=== PATIENT | female | born 2000 | race Caucasian/White ===

== ENCOUNTER 2023-11-09 09:35 | Observation (INO) ==
--- NOTE | 2023-11-09 09:55 | Emergency Department Note ---
Impression & Plan Infectious mononucleosis with hepatitis, Intractable nausea and vomiting, Transaminitis, Dehydration ED Provider Note NAME: FARZAD DURÁN AGE: 23 SEX: F ARRIVES VIA: Ambulance INFORMANT: Patient ED PROVIDER(S): Gerard Leyva MD CHIEF COMPLAINT: Fever, cough congestion, nausea, vomiting, diarrhea. 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 The patient reports that she developed symptoms this past Friday and was seen at [facility] and diagnosed with influenza. She reports that she also had enlarged lymph nodes on her neck and it was suspected that she may also have mono at the time. She reports she did not get tested for mono but instructed to return if symptoms or not improving. She denies any chest pain or shortness of breath. On evaluation the patient is in no acute distress, afebrile with heart rate in the 100s and vital signs otherwise stable. She appears clinically dry. She has boggy nasal turbinates. She has scant injection of posterior pharynx without edema, exudates, tongue elevation or trismus. She does have mildly reactive posterior and submandibular lymphadenopathy. There is no pain with tracheal ambulation. Neck is supple full range of motion. Lungs with scant intermittent wheeze and otherwise are clear. She has generalized abdominal discomfort without discrete tenderness. EKG without overt acute ischemia. Chest x-ray with small right suprahilar density which may be artifactual from pulmonary vessels though pneumonia could appear similar and so repeat x-ray and follow-up is recommended. WBC 13.5K, nonspecific without neutrophilia. Atypical lymphocytes are present. H/H within normal limits. Platelets slightly low at 125K and consistent with viral illness. Potassium 3.3 with repletion initiated. BUN/creatinine 22, consistent the patient clean dry appearance. LFTs are elevated with total bilirubin 2.5, direct bili 1.5, AST and ALT 235 and 257, respectively and alk phos 322. Monoscreen was positive and so transaminitis likely related to this. High-sensitivity troponin 4.8, within normal limits. Lipase is not elevated. Procalcitonin is not elevated. hCG negative. CT abdomen pelvis performed to exclude intra-abdominal process contributing to LFTs and this was negative for acute abnormalities. 1.4 cm left paraovarian cyst is seen unlikely to be clinically significant. Mild splenomegaly consistent with patient's mononucleosis. Question of a 4 mm groundglass nodule is suggestive of inflammatory or infectious change. UA with WBCs and 2+ bacteria albeit with epithelial cells present. Urine drug screen did result positive for THC. On evaluation the patient felt marginally improved following treatment with IVF hydration famotidine, Zofran, Toradol, guaifenesin and nasal saline and albuterol MDI. Patient still reported significant nausea and was only minimally able to sip on water but nearly provoking recurrence of emesis. Given persistent of her symptoms with intractable nausea and vomiting in the setting of mononucleosis and influenza he does agree with plan for admission. I did review the patient's evaluation and plan with her mother as well over the phone at the patient's bedside. She also agreed with admission at this time. Of note, I did discuss the patient's acetaminophen use with the patient and her mother the phone and the mother was confident that she did not exceed more than 3000 mg in a single day. Case was d/[place] [facility] [place] who will evaluate the patient for admission. Further management per admitting team. Triage Nursing notes reviewed and agree them. Prior/external medical records reviewed Vital Signs: reviewed Differential diagnosis: Viral syndrome, otitis, pharyngitis, pneumonia, influenza, meningitis, urinary tract infection, sepsis, bacteremia, as well as other pathologies. ER treatment provided: See below. Diagnostics interpreted by me: ECG: Normal sinus rhythm with sinus arrhythmia, 89 bpm, no ectopy, nonspecific T wave abnormality, no overt ST elevation or depression, QTc 403, QRS 82. Cardiac Monitoring: An order for continuous cardiac monitoring was placed and demonstrated Normal sinus rhythm with sinus arrhythmia, 89 bpm, no ectopy. Laboratory studies: See below Imaging studies: See below Consultation(s): Case was d/[place]. [place] [facility] [place] who will evaluate the patient for admission. 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 The patient reports that she developed symptoms this past Friday and was seen at [facility] and diagnosed with influenza. She reports that she also had enlarged lymph nodes on her neck and it was suspected that she may also have mono at the time. She reports she did not get tested for mono but instructed to return if symptoms or not improving. She denies any chest pain or shortness of breath. ROS: See above HPI for pertinent positives & negatives. A total of 10 systems reviewed and were otherwise negative. VITALS:See Below PHYSICAL EXAMINATION: GENERAL: Awake, alert, ill-appearing, in no distress HENT: Normocephalic, atraumatic. Boggy nasal turbinates. Oropharynx with scant injection and dry mucous membranes and otherwise without edema, exudates, tongue elevation or trismus. EYES: Normal conjunctiva. Sclera non-icteric. NECK: Supple. No nuchal rigidity. FROM. No JVD. Reactive posterior cervical and submandibular lymphadenopathy. There is no pain with tracheal ablation. Neck is supple full range of motion. RESPIRATORY: Scant intermittent wheeze bilaterally and otherwise clear to auscultation. CARDIAC: Tachycardic rate, normal rhythm. Extremities warm and well perfused. Pulses equal. ABDOMEN: Soft, non-distended. Generalized abdominal discomfort without discrete tenderness to palpation. No rebound or guarding. No masses. RECTAL: Deferred. MUSCULOSKELETAL: Chest examination reveals no tenderness. The back is symmetrical on inspection without obvious abnormality. There is no CVA tenderness to palpation. No joint edema. LOWER EXTREMITIES: Calves are equal size bilaterally and non-tender. No edema. No discoloration. NEURO: Normal sensorium. No sensory or motor deficits noted. SKIN: No rash or jaundice noted. Gerard Leyva MD Past Med/Surg History Medical History Migraine Surgical History History of wisdom tooth extraction Social History Smoking Status: Never smoker Do You Dip or Chew Tobacco: No; Hx Alcohol Use: Yes Alcohol type: beer, wine and hard liquor Hx Substance Use: Yes Last Used Substance: Days (ago) Preferred Language: Israeli Communication Ability: Effective Case Planner Required: No Beliefs That Will Affect Care: None Current Living Situation: Other Other Information That Helps Us Care for You: No Feels Safe at Home: Yes Safety Concerns: Feels Safe At This Time Assistive Devices: Glasses Allergies Allergies Allergy/AdvReac Type Severity Reaction Status Date / Time Penicillins Allergy Rash Verified 11/09/23 12:00 Home Meds Home Medications Medication Instructions Recorded Confirmed No Known Home Medications 11/09/23 11/09/23 Results & Data (ED) Vital Signs Vital Signs - 24 hr 11/09/23 09:38 11/09/23 11:34 11/09/23 12:41 Temperature 37.1 C Temperature Source Oral Pulse Rate 104 H Pulse Rate [Right Finger] 114 H 93 H Pulse Rate from SpO2 Sensor Pulse Rhythm [Right Finger] Regular Regular Pulse Strength [Right Finger] Normal Normal Respiratory Rate 18 18 16 Respiratory Effort / Characteristics Non-Labored Non-Labored Non-Labored Respiratory Depth Normal Normal Normal Respiratory Pattern Regular Regular Regular Blood Pressure 140/88 Blood Pressure [Right Arm] 136/81 121/86 Blood Pressure Mean 105 Blood Pressure Mean [Right Arm] 99 97 Blood Pressure Position [Right Arm] Lying Sitting Pulse Oximetry 97 97 97 Oxygen Delivery Method Room Air Room Air Room Air Sepsis Recent Fever Within 48 Hours Yes Sepsis New/Unexplained Change in Mental Status No Sepsis Action Taken by Nursing No Action Required 11/09/23 13:04 11/09/23 13:30 11/09/23 13:30 Temperature Temperature Source Pulse Rate 102 H 92 H Pulse Rate [Right Finger] Pulse Rate from SpO2 Sensor 101 H 93 H Pulse Rhythm [Right Finger] Pulse Strength [Right Finger] Respiratory Rate 13 12 Respiratory Effort / Characteristics Respiratory Depth Respiratory Pattern Blood Pressure 130/79 Blood Pressure [Right Arm] Blood Pressure Mean 83 Blood Pressure Mean [Right Arm] Blood Pressure Position [Right Arm] Pulse Oximetry 96 97 Oxygen Delivery Method Sepsis Recent Fever Within 48 Hours Sepsis New/Unexplained Change in Mental Status Sepsis Action Taken by Nursing 11/09/23 13:40 11/09/23 14:08 11/09/23 14:08 Temperature Temperature Source Pulse Rate 104 H 91 H Pulse Rate [Right Finger] Pulse Rate from SpO2 Sensor 92 H Pulse Rhythm [Right Finger] Pulse Strength [Right Finger] Respiratory Rate 15 Respiratory Effort / Characteristics Respiratory Depth Respiratory Pattern Blood Pressure 130/79 Blood Pressure [Right Arm] Blood Pressure Mean 103 Blood Pressure Mean [Right Arm] Blood Pressure Position [Right Arm] Pulse Oximetry 96 Oxygen Delivery Method Sepsis Recent Fever Within 48 Hours Sepsis New/Unexplained Change in Mental Status Sepsis Action Taken by Nursing 11/09/23 14:30 11/09/23 14:30 11/09/23 15:00 Temperature Temperature Source Pulse Rate 88 Pulse Rate [Right Finger] Pulse Rate from SpO2 Sensor 87 Pulse Rhythm [Right Finger] Pulse Strength [Right Finger] Respiratory Rate 20 Respiratory Effort / Characteristics Respiratory Depth Respiratory Pattern Blood Pressure 123/66 102/69 Blood Pressure [Right Arm] Blood Pressure Mean 90 80 Blood Pressure Mean [Right Arm] Blood Pressure Position [Right Arm] Pulse Oximetry 97 Oxygen Delivery Method Sepsis Recent Fever Within 48 Hours Sepsis New/Unexplained Change in Mental Status Sepsis Action Taken by Nursing 11/09/23 15:00 Temperature Temperature Source Pulse Rate 90 Pulse Rate [Right Finger] Pulse Rate from SpO2 Sensor 184 H Pulse Rhythm [Right Finger] Pulse Strength [Right Finger] Respiratory Rate 13 Respiratory Effort / Characteristics Respiratory Depth Respiratory Pattern Blood Pressure Blood Pressure [Right Arm] Blood Pressure Mean Blood Pressure Mean [Right Arm] Blood Pressure Position [Right Arm] Pulse Oximetry 96 Oxygen Delivery Method Sepsis Recent Fever Within 48 Hours Sepsis New/Unexplained Change in Mental Status Sepsis Action Taken by Nursing Laboratory Data 11/09/23 09:45 11/09/23 09:45 Lab Results 11/09/23 Range/Units 09:45 WBC 13.50 H (4.8-10.8) K/ul RBC 5.55 H (4.20-5.40) M/uL Hgb 15.2 (12.0-16.0) g/dl Hct 45.7 (37.0-47.0) % MCV 82.3 (80.0-100.0) fL MCH 27.4 (25.0-34.0) pg MCHC 33.3 (32.0-36.0) g/dL RDW Std Deviation 40.8 (36.4-46.3) fL RDW Coeff of Hanna 13.7 (11.5-14.5) % Plt Count 125 L (130-400) K/uL MPV 12.0 (9.4-12.4) fL Neutrophils % (Manual) 26 % Lymphocytes % (Manual) 15 % Reactive Lymphs % (Man) 54 % Monocytes % (Manual) 5 % Neutrophils # (Manual) 3.51 (1.40-6.50) K/uL Total Absolute Neuts 3.51 (1.4-6.5) K/uL Lymphocytes # (Manual) 2.03 (1.2-3.4) K/uL Reactive Lymphs # 7.29 K/uL Total Abs Lymphocytes 9.32 H (1.2-3.4) K/uL Monocytes # (Manual) 0.68 H (0.11-0.59) K/uL PT 11.7 (9.0-12.0) Seconds INR 1.1 (0.9-1.1) Sodium 138 (136-145) mmol/L Potassium 3.3 L (3.5-5.1) mmol/L Chloride 101 (98-107) mmol/L Carbon Dioxide 26 (21-32) mmol/L Anion Gap 11 (3-11) BUN 11 (6-23) mg/dl Creatinine 0.49 L (0.6-1.2) mg/dl Est Cr Clr Drug Dosing 188.8 ml/min Est GFR ( Amer) > 150.0 ml/min Est GFR (Non-Af Amer) 138.3 ml/min BUN/Creatinine Ratio 22.4 H (10-20) Glucose 99 (70-99(Fasting)) mg/dl Calcium 9.2 (8.6-10.3) mg/dl Magnesium 2.0 (1.7-2.4) mg/dl Total Bilirubin 2.5 H (0.2-1.0) mg/dl Direct Bilirubin 1.5 H (0-0.2) mg/dl AST 235 H (13-39) U/L ALT 257 H (7-52) U/L Alkaline Phosphatase 322 H (34-104) U/L Troponin I High Sens 4.8 (0-14) pg/ml Total Protein 7.8 (6.0-8.3) gm/dl Albumin 4.0 (3.4-5.0) gm/dl Globulin 3.8 (2.5-4.0) gm/dl Albumin/Globulin Ratio 1.1 (0.9-2) Lipase 38 (11-82) U/L Procalcitonin 0.26 (0-0.5) ng/ml HCG, Qual Negative (Negative) Monoscreen Positive A (Negative) Administered Medications Acetaminophen (Acetaminophen 325 Mg Tab) 650 mg PO Q4H PRN PRN Reason: pain/fever Stop: 12/09/23 17:00 Last Admin: 11/09/23 17:48 Dose: 650 mg Documented By: ALEX Albuterol (Albut/Ipratrop 3mg/0.5mg Neb 3 Ml Vial) 3 ml NEB QIDR ALLYSSA; Protocol Stop: 12/09/23 18:59 Last Admin: 11/09/23 20:12 Dose: 3 ml Documented By: MONTY Guaifenesin (Guaifenesin 600 Mg Tabcr) 1,200 mg PO Q12 ALLYSSA Stop: 12/09/23 20:59 Last Admin: 11/09/23 20:17 Dose: 1,200 mg Documented By: JAGJIT Dextrose/Lactated Ringer's (D5w And Lactated Ringers) 1,000 mls @ 125 mls/hr IV .Q8H ALLYSSA Stop: 12/09/23 19:59 Last Admin: 11/09/23 20:17 Dose: 125 mls/hr Documented By: JAGJIT Melatonin (Melatonin 3 Mg Tab) 3 mg PO HS PRN PRN Reason: Insomnia Stop: 12/09/23 17:00 Last Admin: 11/09/23 20:16 Dose: 3 mg Documented By: JAGJIT Ondansetron HCl (Ondansetron Inj 2 Mg/Ml 2 Ml Vial) 4 mg IV Q4H PRN PRN Reason: Nausea Stop: 12/09/23 17:00 Last Admin: 11/09/23 20:16 Dose: 4 mg Documented By: JAGJIT Discontinued Medications Albuterol (Albuterol Hfa 8 Gm Inhaler) 2 puffs INH NOW ONE Stop: 11/09/23 10:12 Last Admin: 11/09/23 10:35 Dose: 2 puffs Documented By: MILTON Albuterol (Albut/Ipratrop 3mg/0.5mg Neb 3 Ml Vial) 3 ml NEB NOW STA; Protocol Stop: 11/09/23 16:30 Last Admin: 11/09/23 17:25 Dose: 3 ml Documented By: SHANAE Diphenhydramine HCl (Diphenhydramine 50 Mg/Ml Vial) 25 mg IV NOW STA Stop: 11/09/23 14:34 Last Admin: 11/09/23 15:13 Dose: 25 mg Documented By: LKD Guaifenesin (Guaifenesin 600 Mg Tabcr) 1,200 mg PO NOW STA Stop: 11/09/23 10:12 Last Admin: 11/09/23 10:37 Dose: 1,200 mg Documented By: [facility] Sodium Chloride (Nss) 1,000 mls @ 999 mls/hr IV .Q1H1M ALLYSSA Stop: 11/09/23 12:15 Last Infusion: 11/09/23 14:06 Dose: Infused Documented By: Admin: 11/09/23 10:42 Dose: 999 mls/hr Documented By: Infusion: 11/09/23 10:42 Dose: Infused Documented By: [facility] Admin: 11/09/23 10:34 Dose: 999 mls/hr Documented By: [facility] Famotidine (Pepcid 20mg Iv Push) 20 mg in 5 mls @ 2.5 mls/min IV NOW STA Stop: 11/09/23 10:12 Last Admin: 11/09/23 10:41 Dose: 2.5 mls/min Documented By: [facility] Potassium Chloride (K Darius / Wtr) 10 meq in 100 mls @ 100 mls/hr IV Q1H ALLYSSA Stop: 11/09/23 13:59 Last Infusion: 11/09/23 15:15 Dose: Infused Documented By: Admin: 11/09/23 14:06 Dose: 100 mls/hr Documented By: Infusion: 11/09/23 13:40 Dose: Infused Documented By: Admin: 11/09/23 12:40 Dose: 100 mls/hr Documented By: [facility] Promethazine HCl (Phenergan) 12.5 mg in 50.5 mls @ 202 mls/hr IV NOW STA Stop: 11/09/23 14:47 Last Infusion: 11/09/23 15:57 Dose: Infused Documented By: Admin: 11/09/23 15:11 Dose: 202 mls/hr Documented By: DREW Dextrose/Sodium Chloride (D5w And Nss) 1,000 mls @ 999 mls/hr IV .Q1H1M STA Stop: 11/09/23 15:34 Last Infusion: 11/09/23 18:52 Dose: Infused Documented By: ADJack Admin: 11/09/23 15:10 Dose: 999 mls/hr Documented By: DREW Ioversol (Optiray 320 500ml) 89 ml IV ONCE ONE Stop: 11/09/23 12:08 Last Admin: 11/09/23 12:08 Dose: 89 ml Documented By: KASIE Ketorolac Tromethamine (Ketorolac Tromethamine 15 Mg/Ml Vial) 15 mg IV NOW STA Stop: 11/09/23 10:12 Last Admin: 11/09/23 10:38 Dose: 15 mg Documented By: MILTON Ondansetron HCl (Ondansetron Inj 2 Mg/Ml 2 Ml Vial) 4 mg IV NOW STA Stop: 11/09/23 10:12 Last Admin: 11/09/23 10:38 Dose: 4 mg Documented By: MILTON Sodium Chloride (Sodium Chloride 0.65% Na Soln 45 Ml ([place])) 2 sprays NA NOW ONE Stop: 11/09/23 10:12 Last Admin: 11/09/23 10:35 Dose: 2 sprays Documented By: [facility] Imaging Data Radiologist's Impression: Abdomen/Pelvis CT 11/09/23 11:[address] WITH IV CONTRAST CT DOSE: 1147.84 mGy.cm HISTORY: flu, mono, transaminitis, n/v TECHNIQUE: Multiaxial CT images of the abdomen and pelvis were performed following the use of intravenous contrast. A dose lowering technique was utilized adhering to the principles of ALARA. COMPARISON STUDY: None. FINDINGS: There is a 4 mm groundglass nodule within the lingula on image 1. The right lung base is clear. No pneumoperitoneum. No pneumatosis. No acute fractures. The liver, gallbladder, pancreas, adrenal glands, and right kidney are unremarkable. There is a punctate stone within the lower pole of the left kidney. No ureteral stones. No hydronephrosis. The main portal vein is patent. The spleen is mildly enlarged measuring 14.5 cm. No splenic masses or perisplenic fluid collections. No evidence for a splenic injury. The main portal vein is patent. Normal caliber abdominal aorta. No retroperitoneal lymphadenopathy. The bladder, uterus, bilateral adnexa are unremarkable. Trace pelvic free fluid. This is likely physiologic. There is 1.4 cm left paraovarian cyst. No bowel wall thickening or obstruction. Normal appendix. IMPRESSION: 1. No bowel wall thickening or obstruction. 2. Normal appendix. 3. Trace pelvic free fluid. This is likely physiologic. 4. A 1.4 cm left paraovarian cyst. This is of doubtful clinical significance. 5. Mild splenomegaly. 6. A 4 mm groundglass nodule within the lingula. This favors a small focus of inflammatory/infectious change. ACT 112: Negative or not required by law. Electronically signed by: Willem Young M.D. 11/09/2023 1:52 PM Discharge Plan Visit Data Chief Complaint: Illness ED Provider: Gerard Leyva Discharge Problem: Infectious mononucleosis with hepatitis, Intractable nausea and vomiting, Transaminitis, Dehydration Patient Disposition: Admitted As Inpatient Discharge Instructions Interventions: ED Discharge Assessment Last Done: 11/09/23 16:19
[2023-11-09] MEDS: SODIUM CHLORIDE 0.9% 1,000 ML IV SCH (10:34)
[2023-11-09] MEDS: ALBUTEROL HFA 8 GM INHALER INH ONE (10:35)
[2023-11-09] MEDS: SODIUM CHLORIDE 0.65% NA SOLN 45 ML (OCEAN) ONE (10:35)
[2023-11-09] MEDS: guaiFENesin 600 MG TABCR PO STA (10:37)
[2023-11-09] MEDS: ONDANSETRON INJ 2 MG/ML 2 ML VIAL IV STA (10:38)
[2023-11-09] MEDS: KETOROLAC TROMETHAMINE 15 MG/ML VIAL IV STA (10:38)
[2023-11-09] MEDS: FAMOTIDINE 20MG IV PUSH 20 MG/5 ML SYR IV STA (10:41)
[2023-11-09 10:47] LABS: Pregnancy Test, Serum Negative (Negative)
[2023-11-09 10:48] LABS: Alanine Aminotransferase 257 U/L (7-52); Albumin Globulin Ratio 1.1 (0.9-2); Alkaline Phosphatase 322 U/L (34-104); Anion Gap 11 (3-11); Aspartate Aminotransferase 235 U/L (13-39); BUN Creatinine Ratio 22.4 (10-20); Bilirubin,Total 2.5 mg/dl (0.2-1.0); Blood Urea Nitrogen 11 mg/dl (6-23); Calcium 9.2 mg/dl (8.6-10.3); Carbon Dioxide 26 mmol/L (21-32); Chloride 101 mmol/L (98-107); Creatinine Clr Calc Pharmacy 188.8 ml/min; Est GFR (African American) > 150.0 ml/min; Est GFR (Non-African American) 138.3 ml/min; Globulin 3.8 gm/dl (2.5-4.0); Glucose 99 mg/dl (70-99(Fasting)); Lipase 38 U/L (11-82); Potassium 3.3 mmol/L (3.5-5.1); Sodium 138 mmol/L (136-145); Total Protein 7.8 gm/dl (6.0-8.3)
[2023-11-09 10:54] LABS: Monotest Positive (Negative); Troponin I High Sensitivity 4.8 pg/ml (0-14)
[2023-11-09 11:01] LABS: Hematocrit (blood only) 45.7 % (37.0-47.0); Hemoglobin 15.2 g/dl (12.0-16.0); Mean Corpuscular Hemoglobin 27.4 pg (25.0-34.0); Mean Corpuscular Hgb Conc 33.3 g/dL (32.0-36.0); Mean Corpuscular Volume 82.3 fL (80.0-100.0); Platelet Count 125 K/uL (130-400); RDW Coefficient of Variation 13.7 % (11.5-14.5); RDW Standard Deviation 40.8 fL (36.4-46.3); Red Blood Count 5.55 M/uL (4.20-5.40)
[2023-11-09 11:07] LABS: INR 1.1 (0.9-1.1); Prothrombin Time 11.7 Seconds (9.0-12.0)
[2023-11-09 11:27] LABS: ALC (manual) 9.32 K/uL (1.2-3.4); ANC (manual) 3.51 K/uL (1.4-6.5); Lymphocytes # (manual) 2.03 K/uL (1.2-3.4); Lymphocytes % (manual) 15 %; Monocytes # (manual) 0.68 K/uL (0.11-0.59); Monocytes % (manual) 5 %; Neutrophils # (manual) 3.51 K/uL (1.40-6.50); Neutrophils % (manual) 26 %; Reactive Lymphocytes # (manual) 7.29 K/uL; Reactive Lymphocytes % (manual) 54 %
--- NOTE | 2023-11-09 11:31 | XRay Report ---
XR chest 1V portable HISTORY: Chest pain, nonspecific COMPARISON: None. FINDINGS: Small right suprahilar density. The left lung is clear. The heart is normal in size. No ple ural effusions. No pneumothorax. IMPRESSION: Small right suprahilar density. This could represent the normal pulmonary vessels or a developing pne umonia. 1-2 month chest x-ray follow-up recommended to ensure stability/resolution. ACT 112: Negative or not required by law. Electronically signed by: Willem Young M.D. 11/09/2023 11:29 AM
[2023-11-09] MEDS: OPTIRAY 320 500ml IV ONE (12:08)
[2023-11-09 12:19] LABS: Bilirubin Direct 1.5 mg/dl (0-0.2)
[2023-11-09] MEDS: POTASSIUM CHLORIDE / WTR 10 MEQ/100 ML PLCT IV SCH (12:40)
--- NOTE | 2023-11-09 13:48 | Electrocardiogram Report ---
Test Reason : Blood Pressure : / mmHG Vent. Rate : 089 BPM Atrial Rate : 089 BPM P-R Int : 140 ms QRS Dur : 082 ms QT Int : 332 ms P-R-T Axes : 051 075 043 degrees QTc Int : 403 ms Normal sinus rhythm with sinus arrhythmia Nonspecific T wave abnormality Abnormal ECG No previous ECGs available Confirmed by Carlos A Benites ([id number]) on 11/09/2023 1:47:58 PM Referred By: REFERRED SELF Confirmed By:Carlos A Benites
--- NOTE | 2023-11-09 13:53 | CT Scan Report ---
ABDOMEN AND PELVIS CT WITH IV CONTRAST CT DOSE: 1147.84 mGy.cm HISTORY: flu, mono, transaminitis, n/v TECHNIQUE: Multiaxial CT images of the abdomen and pelvis were performed following the use of intrave nous contrast. A dose lowering technique was utilized adhering to the principles of ALARA. COMPARISON STUDY: None. FINDINGS: There is a 4 mm groundglass nodule within the lingula on image 1. The right lung base is cl ear. No pneumoperitoneum. No pneumatosis. No acute fractures. The liver, gallbladder, pancreas, adren al glands, and right kidney are unremarkable. There is a punctate stone within the lower pole of the left kidney. No ureteral stones. No hydronephrosis. The main portal vein is patent. The spleen is mil dly enlarged measuring 14.5 cm. No splenic masses or perisplenic fluid collections. No evidence for a splenic injury. The main portal vein is patent. Normal caliber abdominal aorta. No retroperitoneal l ymphadenopathy. The bladder, uterus, bilateral adnexa are unremarkable. Trace pelvic free fluid. This is likely physiologic. There is 1.4 cm left paraovarian cyst. No bowel wall thickening or obstructio n. Normal appendix. IMPRESSION: 1. No bowel wall thickening or obstruction. 2. Normal appendix. 3. Trace pelvic free fluid. This is likely physiologic. 4. A 1.4 cm left paraovarian cyst. This is of doubtful clinical significance. 5. Mild splenomegaly. 6. A 4 mm groundglass nodule within the lingula. This favors a small focus of inflammatory/infectious change. ACT 112: Negative or not required by law. Electronically signed by: Willem Young M.D. 11/09/2023 1:52 PM
[2023-11-09] MEDS: D5W AND NSS 1,000 ML IV STA (15:10)
[2023-11-09] MEDS: PROMETHAZINE 12.5 MG/50.5 ML BAG IV STA (15:11)
[2023-11-09] MEDS: diphenhydrAMINE 50 MG/ML VIAL IV STA (15:13)
--- NOTE | 2023-11-09 15:23 | History & Physical Report ---
Date of Service November 09, 2023 Assessment & Plan (1) Infectious mononucleosis with hepatitis: Plan: Symptomatic treatment only Monitor LFTs but do not expect to improve for weeks, monitor platelets and INR for liver function (2) Intractable nausea and vomiting: Plan: Urine drug screen, low suspicion of cannabis hyperemesis although she does admit to use Ondansetron 4 mg IV q.4 hourly PRN, Compazine 2nd line IV fluids Home once improving Plan [place] [facility] [place] - clear liquids, advance as tolerated Disposition - admit to [facility] Admission and Anticipated Discharge Date Admission Date: November 09, 2023 History of Present Illness Chief Complaint: Nasuea and vomiting Primary Care Provider: [facility] Shelli Torrez is a 23dyear old female who presents to the ER with nausea, vomiting, generalized weakness, fatigue. Initial symptoms Friday 5 days ago - fatigue, decreased appetite (without dysphagia or odynophagia), nausea and vomiting. She continued to get worse and saw [facility] on Friday and tested positive for influenza but was also suspect to have mono but was never tested. She was told to come to the ER if unable to tolerate liquids which given ongoing symptoms and difficulty keeping down any liquids even with ondansetron prescribed by [facility] - she came to the ER today. In the ER she tested positive for mono with associated splenomegaly on CT and elevated LFTs. Given intractable nausea and vomiting she was referred to medicine for admission and ongoing management. 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: No Beliefs That Will Affect Care: None Current Living Situation: Other Other Information That Helps Us Care for You: No Feels Safe at Home: Yes Safety Concerns: Feels Safe At This Time Assistive Devices: Glasses Review of Systems Review of Systems: All systems reviewed & are unremarkable except as noted in HPI & below Physical Exam Constitutional: WD/WN, vitals as above Eyes: PERRL, conjunctivae normal, anicteric sclerae ENMT: Mouth: + dry oral mucous membranes Respiratory: normal respiratory effort, lungs clear to auscultation Cardiovascular: Rate/Rhythm: regular rhythm and + tachycardic Heart Sounds: no murmur Extremities: normal capillary refill; no calf tenderness and no pedal edema Gastrointestinal (Abdomen): Inspection/Auscultation: abdomen normal to inspection Percussion/Palpation: + abdomen tender (Mild RUQ and LUQ tendernes s) and abdomen soft; no guarding and abdomen not rigid Musculoskeletal: no cyanosis or clubbing, extremities motor strength 5/5 Skin: no rashes, warm and dry Neurologic: moves all extremities and awake; not confused Psychiatric: A+Ox3, euthymic affect Genitourinary: no CVA tenderness Lymphatic: + cervical lymphadenopathy (posterior le ft) Results & Data Results & Data Vital Signs (Past 12 Hours) Vital Signs Temp Pulse Pulse Resp BP BP Pulse Ox 11/09/23 13:40 104 H 11/09/23 12:41 93 H 16 121/86 97 11/09/23 11:34 114 H 18 136/81 97 11/09/23 09:38 37.1 C 104 H 18 140/88 97 O2 Del Method 11/09/23 13:40 11/09/23 12:41 Room Air 11/09/23 11:34 Room Air 11/09/23 09:38 Room Air Laboratory Results Abnormal lab results 11/09/23 Range/Units 09:45 WBC 13.50 H (4.8-10.8) K/ul RBC 5.55 H (4.20-5.40) M/uL Plt Count 125 L (130-400) K/uL Total Abs Lymphocytes 9.32 H (1.2-3.4) K/uL Monocytes # (Manual) 0.68 H (0.11-0.59) K/uL Potassium 3.3 L (3.5-5.1) mmol/L Creatinine 0.49 L (0.6-1.2) mg/dl BUN/Creatinine Ratio 22.4 H (10-20) Total Bilirubin 2.5 H (0.2-1.0) mg/dl Direct Bilirubin 1.5 H (0-0.2) mg/dl AST 235 H (13-39) U/L ALT 257 H (7-52) U/L Alkaline Phosphatase 322 H (34-104) U/L Monoscreen Positive A (Negative) Diagnostic Findings XR chest 1V portable HISTORY: Chest pain, nonspecific COMPARISON: None. FINDINGS: Small right suprahilar density. The left lung is clear. The heart is normal in size. No pleural effusions. No pneumothorax. IMPRESSION: Small right suprahilar density. This could represent the normal pulmonary vessels or a developing pneumonia. 1-2 month chest x-ray follow-up recommended to ensure stability/resolution. ABDOMEN AND PELVIS CT WITH IV CONTRAST CT DOSE: 1147.84 mGy.cm HISTORY: flu, mono, transaminitis, n/v TECHNIQUE: Multiaxial CT images of the abdomen and pelvis were performed following the use of intravenous contrast. A dose lowering technique was utilized adhering to the principles of ALARA. COMPARISON STUDY: None. FINDINGS: There is a 4 mm groundglass nodule within the lingula on image 1. The right lung base is clear. No pneumoperitoneum. No pneumatosis. No acute fractures. The liver, gallbladder, pancreas, adrenal glands, and right kidney are unremarkable. There is a punctate stone within the lower pole of the left kidney. No ureteral stones. No hydronephrosis. The main portal vein is patent. The spleen is mildly enlarged measuring 14.5 cm. No splenic masses or perisplenic fluid collections. No evidence for a splenic injury. The main portal vein is patent. Normal caliber abdominal aorta. No retroperitoneal lymphadenopathy. The bladder, uterus, bilateral adnexa are unremarkable. Trace pelvic free fluid. This is likely physiologic. There is 1.4 cm left paraovarian cyst. No bowel wall thickening or obstruction. Normal appendix. IMPRESSION: 1. No bowel wall thickening or obstruction. 2. Normal appendix. 3. Trace pelvic free fluid. This is likely physiologic. 4. A 1.4 cm left paraovarian cyst. This is of doubtful clinical significance. 5. Mild splenomegaly. 6. A 4 mm groundglass nodule within the lingula. This favors a small focus of inflammatory/infectious change. Medications Administered ER medications given: Normal saline 1 L bolus Famotidine 20 mg IV Ondansetron 4 mg IV Toradol 15 mg IV Guaifenesin 1200 mg p.o. Nasal spray 2 sprays Albuterol 2 puffs inhaler Potassium chloride 10 mEq x2 Promethazine 12.5 mg IV Diphenhydramine 25 mg IV ECG Rate (beats per minute): 89 Rhythm: sinus with SA Findings: no acute ischemic change Comparison ECG Date: no prior available Code Status & VTE Plan Code Status Full VTE Prophylaxis Plan VTE Prophylaxis will be ordered: No PG Care Time/CCT Total # of Minutes Spent Total Time Spent with Patient: Total time spent is greater than 50% in coordination of care (as documented) at patient's floor/unit and/or counseling patient: Coding Level of Care Code 03058 INT INP/OBS CARE 2MIN Diagnoses Infectious mononucleosis with hepatitis B27.99; B17.8 Intractable nausea and vomiting R11.2
[2023-11-09 16:39] LABS: Influenza A virus by PCR Positive (Neg); Influenza B virus by PCR Negative (Neg); RSV by PCR Negative (Neg); SARS CoV2 RNA(COVID-19) Ceph NEGATIVE (Negative)
[2023-11-09] MEDS ORDERED: POLYETHYLENE (MIRALAX) 17 GM PACK PO PRN (17:01)
[2023-11-09] MEDS ORDERED: ALUMINUM/MAGNESIUM SUSP 30 ML UDC PO PRN (17:01)
[2023-11-09] MEDS: ALBUT/IPRATROP 3MG/0.5MG NEB 3 ML VIAL NEB STA (17:25)
[2023-11-09] MEDS: ACETAMINOPHEN 325 MG TAB PO PRN (17:48)
[2023-11-09 18:42] LABS: Appearance Urine Cloudy (Clear); Bacteria Urine Automated 2+ (Negative); Blood Urine Negative (Negative); Color Urine Dark Yellow; Epithelial Cell Urine Auto >30 /lpf (0-5); Glucose Urine UA 2+ (Negative); Ketones Urine 3+ (Negative); Leukocyte Esterase Urine Trace (Negative); Nitrite Urine Negative (Negative); Protein Urine Trace (Negative); Specific Gravity Urine 1.032 (1.000-1.030); Urobilinogen Urine Positive (Negative); pH Urine 6.5 (4.5-7.5)
[2023-11-09 18:43] LABS: Bilirubin Urine 1+ (Negative)
[2023-11-09 19:03] LABS: RBC Urine Automated 0-4 /hpf (0-4)
[2023-11-09 19:12] LABS: Amphetamines+Metham, Urine Neg (Neg); Barbiturates, Urine Neg (Neg); Benzodiazepine, Urine Neg (Neg); Cocaine, Urine Neg (Neg); MDMA (Ecstacy), Urine Neg (Neg); Marijuana, Urine Pos (Neg); Methadone, Urine Neg (Neg); Opiate, Urine Neg (Neg); Phencyclidine, Urine Neg (Neg)
[2023-11-09] MEDS: ALBUT/IPRATROP 3MG/0.5MG NEB 3 ML VIAL NEB SCH (20:12)
[2023-11-09] MEDS: MELATONIN 3 MG TAB PO PRN (20:16)
[2023-11-09] MEDS: ONDANSETRON INJ 2 MG/ML 2 ML VIAL IV PRN (20:16)
[2023-11-09] MEDS: D5W AND LACTATED RINGERS 1,000 ML IV SCH (20:17)
[2023-11-09] MEDS: guaiFENesin 600 MG TABCR PO SCH (20:17)
[2023-11-10] MEDS: DEXTROMETHORPHAN POLYMR COMPLX 30 MG/5 ML UDP PO PRN (01:49)
[2023-11-10] MEDS: KETOROLAC TROMETHAMINE 15 MG/ML VIAL IV ONE (02:26)
[2023-11-10] MEDS: ALBUT/IPRATROP 3MG/0.5MG NEB 3 ML VIAL NEB ONE (06:37)
[2023-11-10 08:51] LABS: Hematocrit (blood only) 37.9 % (37.0-47.0); Hemoglobin 12.6 g/dl (12.0-16.0); Mean Corpuscular Hemoglobin 27.6 pg (25.0-34.0); Mean Corpuscular Hgb Conc 33.2 g/dL (32.0-36.0); Mean Corpuscular Volume 82.9 fL (80.0-100.0); Mean Platelet Volume 12.4 fL (9.4-12.4); Platelet Count 102 K/uL (130-400); RDW Coefficient of Variation 14.2 % (11.5-14.5); RDW Standard Deviation 42.6 fL (36.4-46.3); Red Blood Count 4.57 M/uL (4.20-5.40); White Blood Count 11.91 K/ul (4.8-10.8)
[2023-11-10 08:53] LABS: INR 1.1 (0.9-1.1); Prothrombin Time 11.7 Seconds (9.0-12.0)
--- NOTE | 2023-11-10 09:00 | Hospitalist Progress Note ---
Date of Service November 10, 2023 Assessment & Plan (1) Dehydration: (2) Infectious mononucleosis with hepatitis: (3) Intractable nausea and vomiting: (4) Influenza A: Plan Infectious mononucleosis with hepatitis | Influenza A Positive -Symptomatic treatment only -Headache, sore throat, cough are most bothersome symptoms but improve with medications -Monitor LFTs but do not expect to improve for weeks, monitor platelets and INR for liver function Intractable nausea and vomiting -Urine drug screen, low suspicion of cannabis hyperemesis although she does admit to use -Ondansetron 4 mg IV q.4 hourly PRN, Compazine 2nd line -IV fluids -Will switch to regular diet and see if she is able to tolerate some solids Plan VTE prophylaxis - SCDs Diet - regular Disposition - [facility] Admission and Anticipated Discharge Date Admission Date: November 09, 2023 Supervising Physician Co-Signing Physician Notes I personally examined the patient and verified all bhandari points of history and exam, discussed case, and agree with decision making with Dr Ramires Feeling a little bit better than earlierstill on and off nausea but has been able to eat a popsicle. Still fairly poor appetite but again was able to eat a popsicle well, and thinks she could try some crackers. Still a very sore throat. Also has a very large lymph node on the left side of the back of her necknotes that this actually predates her flu and mono, and relates back to a pharyngitis that she had maybe a month or so ago where her tonsils were quite enlarged. Vitals noted, in general she is awake and alert appears fatigued but otherwise no distress. HEENT normocephalic atraumatic mucous membranes moist. Pharyngeal erythema no exudate, tonsils probably 2+. Left posterior cervical node enlarged, moderately tender, freely mobile. Lungs clear to auscultation bilaterally no rales rhonchi or wheezes good effort no accessory muscle use no conversational dyspnea. Abdomen soft nondistended nontender no masses organomegaly. Influenza A, mononucleosispoor p.o. intake/failure to thrive due to both of abovefortunately seems to be improving. Continue supportive care and symptomatic management, encourage p.o. intake. Home once she is able to do well enough to eat and drink on her own. Chest x-ray findingclinically I suspect it is just shadowing from a pulmonary artery, given that she does not show true pneumonialike signs or symptoms on history or exam. otherwise as above, UA was likely "false positive" due to dehydration - does not appear to have UTI clinically given no c/o dysuria Subjective No acute events reported overnight. Patient notes that she has a bad headache this morning and sore throat, also has had some nausea on and off. Did eat a popsicle and was able to tolerate. Her parents are at bedside this afternoon. Review of Systems Review of Systems: As per above Physical Exam Constitutional: WD/WN, vitals as above Eyes: + anicteric sclerae; no conjunctival abn ormality ENMT: Ears: no external ear abnormality Nose: no external nose abnormality Moist mucous membranes Erythema at posterior oropharynx, tonsillar hypertrophy. Posterior cervical LAD at left side Respiratory: normal respiratory effort, lungs clear to auscultation + cough Cardiovascular: Rate/Rhythm: regular rhythm and + tachycardic Extremities: no edema Skin: no rashes, warm and dry Psychiatric: A+Ox3, euthymic affect Results & Data Results & Data Vital Signs (Past 12 Hours) Vital Signs Temp Pulse Resp BP Pulse Ox O2 Del Method 11/10/23 07:24 96 H 18 95 Room Air 11/10/23 07:20 36.8 C 96 H 16 116/75 95 Room Air 11/09/23 21:19 Room Air Diagnostic Findings Chest X-Ray 11/09/23 10:10 XR chest 1V portable HISTORY: Chest pain, nonspecific COMPARISON: None. FINDINGS: Small right suprahilar density. The left lung is clear. The heart is normal in size. No pleural effusions. No pneumothorax. IMPRESSION: Small right suprahilar density. This could represent the normal pulmonary vessels or a developing pneumonia. 1-2 month chest x-ray follow-up recommended to ensure stability/resolution. ACT 112: Negative or not required by law. Electronically signed by: Willem Young M.D. 11/09/2023 11:29 AM Abdomen/Pelvis CT 11/09/23 11:[address] WITH IV CONTRAST CT DOSE: 1147.84 mGy.cm HISTORY: flu, mono, transaminitis, n/v TECHNIQUE: Multiaxial CT images of the abdomen and pelvis were performed following the use of intravenous contrast. A dose lowering technique was utilized adhering to the principles of ALARA. COMPARISON STUDY: None. FINDINGS: There is a 4 mm groundglass nodule within the lingula on image 1. The right lung base is clear. No pneumoperitoneum. No pneumatosis. No acute fractures. The liver, gallbladder, pancreas, adrenal glands, and right kidney are unremarkable. There is a punctate stone within the lower pole of the left kidney. No ureteral stones. No hydronephrosis. The main portal vein is patent. The spleen is mildly enlarged measuring 14.5 cm. No splenic masses or perisplenic fluid collections. No evidence for a splenic injury. The main portal vein is patent. Normal caliber abdominal aorta. No retroperitoneal lymphadenopathy. The bladder, uterus, bilateral adnexa are unremarkable. Trace pelvic free fluid. This is likely physiologic. There is 1.4 cm left paraovarian cyst. No bowel wall thickening or obstruction. Normal appendix. IMPRESSION: 1. No bowel wall thickening or obstruction. 2. Normal appendix. 3. Trace pelvic free fluid. This is likely physiologic. 4. A 1.4 cm left paraovarian cyst. This is of doubtful clinical significance. 5. Mild splenomegaly. 6. A 4 mm groundglass nodule within the lingula. This favors a small focus of inflammatory/infectious change. ACT 112: Negative or not required by law. Electronically signed by: Willem Young M.D. 11/09/2023 1:52 PM Resident Activity Tracking Resident Involvement: Resident Care Provided Care Provided: [facility] Medicine
[2023-11-10 09:09] LABS: Alanine Aminotransferase 174 U/L (7-52); Albumin Globulin Ratio 1.1 (0.9-2); Albumin Level 3.4 gm/dl (3.4-5.0); Alkaline Phosphatase 287 U/L (34-104); Anion Gap 6 (3-11); Aspartate Aminotransferase 119 U/L (13-39); Blood Urea Nitrogen 4 mg/dl (6-23); Calcium 8.5 mg/dl (8.6-10.3); Carbon Dioxide 29 mmol/L (21-32); Chloride 103 mmol/L (98-107); Creatinine Clr Calc Pharmacy 185.1 ml/min; Est GFR (African American) > 150.0 ml/min; Est GFR (Non-African American) 137.4 ml/min; Globulin 3.2 gm/dl (2.5-4.0); Glucose 115 mg/dl (70-99(Fasting)); Magnesium 1.7 mg/dl (1.7-2.4); Phosphorus 1.8 mg/dl (2.5-4.9); Potassium 3.1 mmol/L (3.5-5.1); Sodium 138 mmol/L (136-145); Total Protein 6.6 gm/dl (6.0-8.3)
[2023-11-10] MEDS: KETOROLAC TROMETHAMINE 15 MG/ML VIAL IV PRN (09:12)
[2023-11-10] MEDS ORDERED: POTASSIUM PHOS 3 MMOL/1 ML INFUSION IV STA (09:26)
[2023-11-10 09:41] LABS: ALC (manual) 9.29 K/uL (1.2-3.4); ANC (manual) 2.38 K/uL (1.4-6.5); Lymphocytes # (manual) 0.83 K/uL (1.2-3.4); Lymphocytes % (manual) 7 %; Monocytes # (manual) 0.24 K/uL (0.11-0.59); Monocytes % (manual) 2 %; Neutrophils # (manual) 2.38 K/uL (1.40-6.50); Neutrophils % (manual) 20 %; Reactive Lymphocytes # (manual) 8.46 K/uL; Reactive Lymphocytes % (manual) 71 %
[2023-11-10] MEDS: POTASSIUM CHLORIDE CRTAB 20 MEQ TABCR PO STA (10:07)
[2023-11-10] MEDS: POTASSIUM PHOSPHATE 21 MMOL in SODIUM CHLORIDE 0.9% 500 ML IV ONE (10:43)
--- NOTE | 2023-11-10 18:05 | Billing Data ---
Date of Service November 10, 2023 Coding Level of Care Code 52126 SUB INP/OBS CARE MIN
[2023-11-10] MEDS: PROCHLORPERAZINE 5 MG in SYRINGE 4 ML IV PRN (20:49)
[2023-11-11] MEDS: ALBUT/IPRATROP 3MG/0.5MG NEB 3 ML VIAL NEB PRN (02:56)
--- NOTE | 2023-11-11 07:09 | Hospitalist Progress Note ---
Date of Service November 11, 2023 Assessment & Plan (1) Dehydration: (2) Infectious mononucleosis with hepatitis: (3) Intractable nausea and vomiting: (4) Influenza A: Plan Infectious mononucleosis with hepatitis | Influenza A Positive -Symptomatic treatment only -Headache, sore throat, cough are most bothersome symptoms but improve with medications -Toradol added PRN -Monitor LFTs but do not expect to improve for weeks, monitor platelets and INR for liver function Intractable nausea and vomiting -Urine drug screen, low suspicion of cannabis hyperemesis although she does admit to use -Ondansetron 4 mg IV q.4 hourly PRN, Compazine 2nd line -IV fluids -Regular diet, eat as tolerated. Plan VTE prophylaxis - SCDs Diet - regular Disposition - [facility] Admission and Anticipated Discharge Date Admission Date: November 09, 2023 Supervising Physician Co-Signing Physician Notes I personally examined the patient and verified all bhandari points of history and exam, discussed case, and agree with decision making with Dr Ramires Throat not as cheryl did note some tonsillar exudate last night whenever she was lookingalthough notes that it was the first that she had looked at her tonsils. She feels much more of a frontal and side of the head headache now, has much more nasal congestion, had significant cough when laying flat through the night, did bring up some blood and vomited a little that was bloody although she is not sure if it was the vomitus or more when she was coughing. Nauseated again. Vitals noted, in general she is awake and alert pleasant fatigued no distress. HEENT normocephalic atraumatic mucous membranes moist pharyngeal erythema and tonsillar size is about the same (tonsils about 2+) there is a thin exudate that I do not recall seeing yesterday, although certainly consistent with mono type findings. Cervical adenopathy persists. Lungs are clear to auscultation bilaterally no rales rhonchi or wheeze with good effort. Abdomen is soft nondistended nontender no epigastric tenderness. Influenza A, mononucleosispoor p.o. intake/failure to thrive due to both of aboveI suspect unfortunately she is now got a secondary bacterial overgrowth sinusitis given her worsening congestion. I suspect the blood that she was co ughing up and vomiting is most likely nosebleeds/sinus bleeding/posterior nosebleed given that she does not have any persistent respiratory symptoms/respiratory respiratory symptoms, she is not hypoxic and her lungs sound clearmaking pneumonia extremely unlikely; she shows no abdominal pain as a symptom or on exam so despite the nausea returning, I doubt or looking at peptic ulcer disease as cause of bleedingand seems to fit the most with a secondary bacterial sinusitis. Unfortunately given that she is doing a little bit worse todayobviously not well enough to go home either. Start ceftriaxone for the sinusitis. Add Pepcid to try to help with the nausea, scheduled Zofran for 24 hours. Increase Flonase to twice daily and add Afrin. otherwise as above, UA was likely "false positive" due to dehydration - does not appear to have UTI clinically given no c/o dysuria Subjective Patient was seen and examined at bedside, no acute events reported overnight. She did have an episode of emesis after lunch, but is overall slowly improving. Does have an ongoing headache, seems to be worse on her left side. Review of Systems Review of Systems: As per above Physical Exam Constitutional: WD/WN, vitals as above Eyes: + anicteric sclerae; no conjunctival abn ormality ENMT: Ears: no external ear abnormality Nose: no external nose abnormality Respiratory: normal respiratory effort, lungs clear to auscultation + cough Cardiovascular: Rate/Rhythm: regular rhythm and + tachycardic Extremities: no edema Skin: no rashes, warm and dry Psychiatric: A+Ox3, euthymic affect Results & Data Results & Data Vital Signs (Past 12 Hours) Vital Signs Pulse Resp Pulse Ox O2 Del Method 11/11/23 02:58 92 H 20 95 Room Air Resident Activity Tracking Resident Involvement: Resident Care Provided Care Provided: Adult Hospital Medicine
[2023-11-11] MEDS: COUGH DROP (SUGAR FREE) LOZ 24 LOZ/1 BOX BUCCAL ONE (07:24)
[2023-11-11 08:44] LABS: Alanine Aminotransferase 205 U/L (7-52); Albumin Globulin Ratio 0.9 (0.9-2); Albumin Level 3.3 gm/dl (3.4-5.0); Alkaline Phosphatase 366 U/L (34-104); Anion Gap 5 (3-11); Aspartate Aminotransferase 168 U/L (13-39); BUN Creatinine Ratio 6.5 (10-20); Blood Urea Nitrogen 3 mg/dl (6-23); Calcium 8.5 mg/dl (8.6-10.3); Carbon Dioxide 27 mmol/L (21-32); Chloride 102 mmol/L (98-107); Creatinine Clr Calc Pharmacy 201.1 ml/min; Est GFR (African American) > 150.0 ml/min; Est GFR (Non-African American) 141.2 ml/min; Globulin 3.5 gm/dl (2.5-4.0); Glucose 110 mg/dl (70-99(Fasting)); Magnesium 1.7 mg/dl (1.7-2.4); Phosphorus 2.1 mg/dl (2.5-4.9); Potassium 3.7 mmol/L (3.5-5.1); Sodium 134 mmol/L (136-145); Total Protein 6.8 gm/dl (6.0-8.3)
[2023-11-11 08:48] LABS: ALC (manual) 7.21 K/uL (1.2-3.4); ANC (manual) 6.63 K/uL (1.4-6.5); Hematocrit (blood only) 36.5 % (37.0-47.0); Hemoglobin 12.3 g/dl (12.0-16.0); Lymphocytes # (manual) 2.16 K/uL (1.2-3.4); Lymphocytes % (manual) 15 %; Mean Corpuscular Hemoglobin 27.5 pg (25.0-34.0); Mean Corpuscular Hgb Conc 33.7 g/dL (32.0-36.0); Mean Corpuscular Volume 81.7 fL (80.0-100.0); Monocytes # (manual) 0.58 K/uL (0.11-0.59); Monocytes % (manual) 4 %; Neutrophils # (manual) 6.63 K/uL (1.40-6.50); Neutrophils % (manual) 46 %; Platelet Count 111 K/uL (130-400); RBC Morphology Unremarkable; RDW Coefficient of Variation 14.4 % (11.5-14.5); RDW Standard Deviation 42.7 fL (36.4-46.3); Reactive Lymphocytes # (manual) 5.04 K/uL; Reactive Lymphocytes % (manual) 35 %; Red Blood Count 4.47 M/uL (4.20-5.40); White Blood Count 14.41 K/ul (4.8-10.8)
[2023-11-11] MEDS ORDERED: POTASSIUM PHOS 3 MMOL/1 ML INFUSION IV STA (09:37)
[2023-11-11] MEDS: MAGNESIUM SULFATE / D5W 1 GM/100 ML BAG IV ONE (10:59)
[2023-11-11] MEDS: FLUTICASONE PROPIONATE NA SPR 16 GM BTL SCH ×2 (12:59→20:25)
[2023-11-11] MEDS: POTASSIUM PHOSPHATE 15 MMOL in SODIUM CHLORIDE 0.9% 250 ML IV ONE (13:00)
[2023-11-11] MEDS: ONDANSETRON INJ 2 MG/ML 2 ML VIAL IV SCH (17:36)
[2023-11-11] MEDS: cefTRIAXone SODIUM 2,000 MG in DEXTROSE 5 % MINI-B 50 ML IV SCH (17:36)
--- NOTE | 2023-11-11 20:07 | Billing Data ---
Date of Service November 11, 2023 Coding Level of Care Code 26998 SUB INP/OBS CARE MIN
[2023-11-11] MEDS: OXYMETAZOLINE 0.05% 30 ML BTL NAE SCH (20:25)
[2023-11-11] MEDS: FAMOTIDINE 20 MG in SYRINGE 3 ML IV SCH (20:54)
[2023-11-11] MEDS ORDERED: FAMOTIDINE 200 MG/20 ML VIAL IV SCH (21:00)
[2023-11-12 08:36] LABS: Alanine Aminotransferase 162 U/L (7-52); Albumin Globulin Ratio 0.9 (0.9-2); Albumin Level 3.2 gm/dl (3.4-5.0); Alkaline Phosphatase 375 U/L (34-104); Anion Gap 5 (3-11); Aspartate Aminotransferase 97 U/L (13-39); BUN Creatinine Ratio 12.5 (10-20); Bilirubin,Total 1.7 mg/dl (0.2-1.0); Blood Urea Nitrogen 5 mg/dl (6-23); Calcium 8.6 mg/dl (8.6-10.3); Carbon Dioxide 27 mmol/L (21-32); Chloride 104 mmol/L (98-107); Creatinine Clr Calc Pharmacy 231.3 ml/min; Est GFR (African American) > 150.0 ml/min; Est GFR (Non-African American) 147.8 ml/min; Globulin 3.4 gm/dl (2.5-4.0); Glucose 105 mg/dl (70-99(Fasting)); Magnesium 1.9 mg/dl (1.7-2.4); Phosphorus 2.6 mg/dl (2.5-4.9); Potassium 3.5 mmol/L (3.5-5.1); Sodium 136 mmol/L (136-145); Total Protein 6.6 gm/dl (6.0-8.3)
[2023-11-12 08:37] LABS: ALC (manual) 6.97 K/uL (1.2-3.4); ANC (manual) 4.85 K/uL (1.4-6.5); Hematocrit (blood only) 38.5 % (37.0-47.0); Hemoglobin 12.5 g/dl (12.0-16.0); Lymphocytes # (manual) 2.86 K/uL (1.2-3.4); Lymphocytes % (manual) 23 %; Mean Corpuscular Hemoglobin 27.2 pg (25.0-34.0); Mean Corpuscular Hgb Conc 32.5 g/dL (32.0-36.0); Mean Corpuscular Volume 83.7 fL (80.0-100.0); Mean Platelet Volume 11.2 fL (9.4-12.4); Metamyelocytes # (manual) 0.12 K/uL (0-0); Metamyelocytes % (manual) 1 %; Monocytes % (manual) 4 %; Neutrophils # (manual) 4.85 K/uL (1.40-6.50); Neutrophils % (manual) 39 %; Platelet Count 160 K/uL (130-400); RDW Coefficient of Variation 14.5 % (11.5-14.5); RDW Standard Deviation 43.7 fL (36.4-46.3); Reactive Lymphocytes # (manual) 4.11 K/uL; Reactive Lymphocytes % (manual) 33 %; White Blood Count 12.44 K/ul (4.8-10.8)
[2023-11-12 14:57] LABS: Marijuana Quant, GCMS Urine 235 ng/mL (<5)
--- NOTE | 2023-11-12 15:18 | Discharge Summary ---
Date of Service November 12, 2023 Admission HPI Per Admitting Provider Shelli Torrez is a 23dyear old female who presents to the ER with nausea, vomiting, generalized weakness, fatigue. Initial symptoms Friday 5 days ago - fatigue, decreased appetite (without dysphagia or odynophagia), nausea and vomiting. She continued to get worse and saw [facility] on Friday and tested positive for influenza but was also suspect to have mono but was never tested. She was told to come to the ER if unable to tolerate liquids which given ongoing symptoms and difficulty keeping down any liquids even with ondansetron prescribed by [facility] - she came to the ER today. In the ER she tested positive for mono with associated splenomegaly on CT and elevated LFTs. Given intractable nausea and vomiting she was referred to medicine for admission and ongoing management. Admission Exam Per Admitting Provider Constitutional: WD/WN, vitals as above Eyes: PERRL, conjunctivae normal, anicteric sclerae ENMT: Mouth: + dry oral mucous membranes Respiratory: normal respiratory effort, lungs clear to auscultation Cardiovascular: Rate/Rhythm: regular rhythm and + tachycardic Heart Sounds: no murmur Extremities: normal capillary refill; no calf tenderness and no pedal edema Gastrointestinal (Abdomen): Inspection/Auscultation: abdomen normal to inspection Percussion/Palpation: + abdomen tender (Mild RUQ and LUQ tenderness) and abdomen soft; no guarding and abdomen not rigid Musculoskeletal: no cyanosis or clubbing, extremities motor strength 5/5 Skin: no rashes, warm and dry Neurologic: moves all extremities and awake; not confused Psychiatric: A+Ox3, euthymic affect Genitourinary: no CVA tenderness Lymphatic: + cervical lymphadenopathy (posterior le ft) Discharge Exam Constitutional WD/WN, vitals as above Eyes + anicteric sclerae; no conjunctival abnormality ENMT Ears: no external ear abnormality Nose: no external nose abnormality Neck Left posterior cervical lymphadenopathy Respiratory normal respiratory effort, lungs clear to auscultation + cough Cardiovascular Rate/Rhythm: regular rhythm and + tachycardic Extremities: no edema Gastrointestinal (Abdomen) Soft, nontender, nondistended Skin no rashes, warm and dry Psychiatric A+Ox3, euthymic affect Discharge Data Allergies Allergy/AdvReac Type Severity Reaction Status Date / Time Penicillins Allergy Rash Verified 11/09/23 12:00 Consultations 11/09/23 15:13 ED Decision to Admit Stat Ordered Studies 11/09/23 11:50 CT abd pelvis IV con only Stat Chest X-Ray 11/09/23 10:10 XR chest 1V portable HISTORY: Chest pain, nonspecific COMPARISON: None. FINDINGS: Small right suprahilar density. The left lung is clear. The heart is normal in size. No pleural effusions. No pneumothorax. IMPRESSION: Small right suprahilar density. This could represent the normal pulmonary vessels or a developing pneumonia. 1-2 month chest x-ray follow-up recommended to ensure stability/resolution. ACT 112: Negative or not required by law. Electronically signed by: Willem Young M.D. 11/09/2023 11:29 AM Abdomen/Pelvis CT 11/09/23 11:[address] WITH IV CONTRAST CT DOSE: 1147.84 mGy.cm HISTORY: flu, mono, transaminitis, n/v TECHNIQUE: Multiaxial CT images of the abdomen and pelvis were performed following the use of intravenous contrast. A dose lowering technique was utilized adhering to the principles of ALARA. COMPARISON STUDY: None. FINDINGS: There is a 4 mm groundglass nodule within the lingula on image 1. The right lung base is clear. No pneumoperitoneum. No pneumatosis. No acute fractures. The liver, gallbladder, pancreas, adrenal glands, and right kidney are unremarkable. There is a punctate stone within the lower pole of the left kidney. No ureteral stones. No hydronephrosis. The main portal vein is patent. The spleen is mildly enlarged measuring 14.5 cm. No splenic masses or perisplenic fluid collections. No evidence for a splenic injury. The main portal vein is patent. Normal caliber abdominal aorta. No retroperitoneal lymphadenopathy. The bladder, uterus, bilateral adnexa are unremarkable. Trace pelvic free fluid. This is likely physiologic. There is 1.4 cm left paraovarian cyst. No bowel wall thickening or obstruction. Normal appendix. IMPRESSION: 1. No bowel wall thickening or obstruction. 2. Normal appendix. 3. Trace pelvic free fluid. This is likely physiologic. 4. A 1.4 cm left paraovarian cyst. This is of doubtful clinical significance. 5. Mild splenomegaly. 6. A 4 mm groundglass nodule within the lingula. This favors a small focus of inflammatory/infectious change. ACT 112: Negative or not required by law. Electronically signed by: Willem Young M.D. 11/09/2023 1:52 PM Hospital Course (1) Dehydration: (2) Infectious mononucleosis with hepatitis: (3) Intractable nausea and vomiting: (4) Influenza A: Plan Infectious mononucleosis with hepatitis | Influenza A Positive Symptomatic treatment provided with Delsym, Mucinex, Afrin, Flonase. Headache, sore throat, cough are most bothersome symptoms but improve with medications LFTs mild elevation in setting of mononucleosis, could consider repeat CMP as follow up in outpatient setting. Monitor LFTs but do not expect to improve for weeks, monitor platelets and INR for liver function Intractable nausea and vomiting -Urine drug screen, low suspicion of cannabis hyperemesis although she does admit to use -Ondansetron 4 mg IV q.4 hourly PRN, Compazine 2nd line -IV fluids -Regular diet, eat as tolerated. Plan VTE prophylaxis - SCDs Diet - regular Disposition - MedSurg Discharge Plan Discharge Items Patient Disposition: Home - Self-Care Reason For Visit: INFECTIOUS MONONUCLEOSIS, INTRACTABLE NAUSEA/VOMIT Discharge Diagnosis: mono, flu A Activity: Per Instructions section Non-emergency contact: Primary Care Provider Call non-emergency contact if: you have any medication questions and your sympto ms worsen Follow-up/Referrals: [facility] [Primary Care Provider] - Diet: Regular Addtl Attending Provider Instructions: leobardo Marques were admitted to the hospital for influenza A and mononucleosis infection. You were treated with IV fluids to stay hydration and anti-nausea medication, as well as medication to address your nasal congestion and cough. At time of discharge, we will send a prescription for Zofran (nausea medication) which you can take every 8 hours as needed for nausea- for the first day at home, I would recommend taking this medication scheduled every 8 hours and in the following few days you can take it only as needed up to every 8 hours. You can continue to use the Flonase nasal spray and Afrin nasal spray for nasal congestion (although the Afrin should be limited to only 3 days of use). You can continue to take [id number] Delsym and Mucinex for cough and mucus as needed. As we discussed, with a mono infection it can take weeks to months for your symptoms (particularly fatigue) to fully resolve. It is important to make sure you get adequate rest and hydration. You should also avoid contact sports in the recovery period of mono due to increased risk of injury to the spleen. We also started you on an antibiotic for sinus infection- I have sent a prescription for Cefdinir to your pharamcy. You will take the first dose of this medicine tonight and will continue it twice daily for 8 days. However we recommend you follow up with your doctor at [facility] early next week (if they are unable to see you, please call [facility] at [phone] to schedule an appointment). At this follow up appointment, you can discuss your sinus infection symptoms and if they are significantly improved, the duration of your antibiotics could be shortened. As we discussed during your admission, there was a "hilar density" on your chest x-ray which we believe is actually a pulmonary artery and not of concern- however it is recommended that you have a repeat chest x-ray in 1-2 months to reassess this finding. Pending Studies at Discharge: No Stand-Alone Forms: My [facility], Smoking Cessation Medications and DC Order Prescriptions: New ondansetron 4 mg tablet,disintegrating 4 mg PO Q8H PRN (Reason: nausea and vomiting) 5 Days Qty: 15 0RF cefdinir 300 mg capsule 300 mg PO BID 8 Days Qty: 16 0RF Rx Instructions: Take first dose on evening of 11/12 dextromethorphan polistirex [Delsym 12 hour] 30 mg/5 mL Suspension,Extended Rel 12 Hr 30 mg PO Q12H PRNQty: 0 0RF guaifenesin [Mucinex] 600 mg Tablet Extended Release 12hr 1,200 mg PO Q12 Qty: 0 0RF oxymetazoline [Nasal [place] (oxymetazoline)] 0.05 % [place],Non-Aerosol 1 spray ALEXA BID Qty: 0 0RF fluticasone propionate 50 mcg/actuation [place],Suspension 2 spray NA BID Qty: 0 0RF Discharge Orders: Discharge Order (Routine); Ordered 11/12/23 Ordered By: Vannesa Ramires Admission Data Admit Date/Time: 11/09/23 15:19 Attending Provider: Reuben Marcum Admit Provider: Ej Betancur [facility] Provider[facility] Other Providers: Ej Betancur
--- NOTE | 2023-11-12 15:21 | Discharge Summary ---
Date of Service November 12, 2023 Admission HPI Per Admitting Provider Shelli Torrez is a 23dyear old female who presents to the ER with nausea, vomiting, generalized weakness, fatigue. Initial symptoms Friday 5 days ago - fatigue, decreased appetite (without dysphagia or odynophagia), nausea and vomiting. She continued to get worse and saw [facility] on Friday and tested positive for influenza but was also suspect to have mono but was never tested. She was told to come to the ER if unable to tolerate liquids which given ongoing symptoms and difficulty keeping down any liquids even with ondansetron prescribed by [facility] - she came to the ER today. In the ER she tested positive for mono with associated splenomegaly on CT and elevated LFTs. Given intractable nausea and vomiting she was referred to medicine for admission and ongoing management. Principal Diagnosis influenza, mono, secondary bacterial sinusitis Discharge Exam gen aaox3 pleasant nad heent nc at mmm breathing unlabored no accessory muscles good effort skin no rashes no pallor or icterus neuro no focal deficits Discharge Data Allergies Allergy/AdvReac Type Severity Reaction Status Date / Time Penicillins Allergy Rash Verified 11/09/23 12:00 Consultations 11/09/23 15:13 ED Decision to Admit Stat Ordered Studies 11/09/23 11:50 CT abd pelvis IV con only Stat Hospital Course (1) Influenza A: admitted due to inability to tolerate p.o. secondary to infectious mononucleosis, and influenza. - Symptomatic/supportive careshe was improving, than yesterday had a bit of a setback with worsening congestion/mucus/face/sinus headacheappears to have a secondary bacterial sinusitisceftriaxone started - today improving again nicely. Obviously does not feel great, but feels like she is doing well enough to be able to go home. ---> [place], hydration, supportive care, Zofran as needed nausea ---> influenzasame as above ---> secondary bacterial overgrowth sinusitiswas on ceftriaxoneswitch to cefdinir. Presumptive 10-day course of treatment, follow-up in the office next weekif improving quickly, could hopefully abbreviate course of antibiotics. Flonase twice daily until congestion is better. Afrin twice daily for 6 total doses (for more after discharge), nasal irrigation ad pieter. ---> cervical adenopathyseems to be secondary to all of above, as well as likely a preceding viral illness. Serial exams until resolution ---> lab abnormalities (leukocytosis, transaminitis) almost certainly due to monorepeat labs in 1-2 weeks (sooner as needed, and then if they have not totally normalized, trend until normal. Safe/stable for home to follow-up at [facility] or [facility] early next week Total Time Total Time Spent Total Time Spent (In Minutes): <30 Discharge Plan Discharge Items Patient Disposition: Home - Self-Care Reason For Visit: INFECTIOUS MONONUCLEOSIS, INTRACTABLE NAUSEA/VOMIT Discharge Diagnosis: mono, flu A Activity: Per Instructions section Non-emergency contact: Primary Care Provider Call non-emergency contact if: you have any medication questions and your symptoms worsen Follow-up/Referrals: [facility] [Primary Care Provider] - Diet: Regular Addtl Attending Provider Instructions: Shelli, leobardo were admitted to the hospital for influenza A and mononucleosis infection. You were treated with IV fluids to stay hydration and anti-nausea medication, as well as medication to address your nasal congestion and cough. At time of discharge, we will send a prescription for Zofran (nausea medication) which you can take every 8 hours as needed for nausea- for the first day at home, I would recommend taking this medication scheduled every 8 hours and in the following few days you can take it only as needed up to every 8 hours. You can continue to use the Flonase nasal spray and Afrin nasal spray for nasal congestion (although the Afrin should be limited to only 3 days of use). You can continue to take [id number] Delsym and Mucinex for cough and mucus as needed. As we discussed, with a mono infection it can take weeks to months for your symptoms (particularly fatigue) to fully resolve. It is important to make sure you get adequate rest and hydration. You should also avoid contact sports in the recovery period of mono due to increased risk of injury to the spleen. We also started you on an antibiotic for sinus infection- I have sent a prescription for Cefdinir to your pharamcy. You will take the first dose of this medicine tonight and will continue it twice daily for 8 days. However we recommend you follow up with your doctor at [facility] early next week (if they are unable to see you, please call [facility] at [phone] to schedule an appointment). At this follow up appointment, you can discuss your sinus infection symptoms and if they are significantly improved, the duration of your antibiotics could be shortened. As we discussed during your admission, there was a "hilar density" on your chest x-ray which we believe is actually a pulmonary artery and not of concern- however it is recommended that you have a repeat chest x-ray in 1-2 months to reassess this finding. Pending Studies at Discharge: No Stand-Alone Forms: My [facility], Smoking Cessation Medications and DC Order Prescriptions: New ondansetron 4 mg tablet,disintegrating 4 mg PO Q8H PRN (Reason: nausea and vomiting) 5 Days Qty: 15 0RF cefdinir 300 mg capsule 300 mg PO BID 8 Days Qty: 16 0RF Rx Instructions: Take first dose on evening of 11/12 dextromethorphan polistirex [Delsym 12 hour] 30 mg/5 mL Suspension,Extended Rel 12 Hr 30 mg PO Q12H PRNQty: 0 0RF guaifenesin [Mucinex] 600 mg Tablet Extended Release 12hr 1,200 mg PO Q12 Qty: 0 0RF oxymetazoline [Nasal [place] (oxymetazoline)] 0.05 % [place],Non-Aerosol 1 spray ALEXA BID Qty: 0 0RF fluticasone propionate 50 mcg/actuation [place],Suspension 2 spray NA BID Qty: 0 0RF Discharge Orders: Discharge Order (Routine); Ordered 11/12/23 Ordered By: Vannesa Ramires Admission Data Admit Date/Time: 11/09/23 15:19 Attending Provider: Reuben Marcum Admit Provider: Ej Betancur Primary Care Provider: [facility] Other Providers: Ej Betancur Coding Level of Care Code 26068 IN/OBS DISCH 30 MIN/LESS Diagnoses Influenza A J10.1
== END 2023-11-12 16:20 | disposition home or self-care (01) ==
LOC: ED 09:35 → SUATTDRO 15:19 → 3W 15:19 → INTOOBSV 15:19 → 3W 16:19